=== PATIENT | male | born 1960 | race Caucasian/White ===

== ENCOUNTER 2018-09-03 11:11 | Outpatient (CLI) | payer OTHER ==
--- NOTE | 2018-09-03 11:25 | RAD ---
Exam: XR Shoulder Rt 2 View HISTORY: Disability evaluation. Right shoulder pain. COMPARISON: None. FINDINGS: Right acromioclavicular joint osteoarthritis is seen. No acute fracture, dislocation, or other acute osseous abnormality is identified. IMPRESSION: 1. Right acromioclavicular joint osteoarthritis. No acute osseous abnormality is seen.
== END 2018-09-03 11:12 | disposition home or self-care (01) ==
LOC: NAV RAD 11:11
PROVIDERS: ATTEND Family Medicine
DX: Z02.71 Encounter for disability determination (principal); M25.511 Pain in right shoulder; M19.011 Primary osteoarthritis, right shoulder